=== PATIENT | female | born 1985 | race Caucasian/White ===

== ENCOUNTER 2024-03-01 19:49 | Emergency (ER) | payer BC, SELFPAY ==
[2024-03-01 19:51] VITALS: BP 158/101
--- NOTE | 2024-03-01 19:59 | ED.GENMED ---
History of Present Illness
General
Chief Complaint: Allergic Reaction
Source: patient
Exam Limitations: none
Time Seen by Provider: 03/01/24 19:58
Nursing documentation reviewed up to this point in time: agreed with
Travel History
Have you had any contact with someone who has COVID-19?: No
Do you have any symptoms of coronavirus? Fever > 100 degrees, chills, cough, shortness of breath, sore throat, loss of taste or smell, muscle aches, or headache?: No
History of Present Illness
History of Present Illness:
38 allergic reaction to Serbian food since last night taking Benadryl
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
Past History
Past History
ED Past Medical History: Other (cervical spine degenerative disease)
ED Past Surgical History:
Social History
Tobacco: Non-smoker
Alcohol: None
Drug: None
Personal:
Living: with family
Employment: Employed
Family History
Family History: Other
Review of Systems
Review of Systems
All Other Systems: Not applicable
EENT: Reports sore throat and mouth swelling
Respiratory: Reports trouble breathing
ABD/GI: Reports no symptoms
Skin: Reports itching and rash
Phy Exam
Physical Exam
Physical Exam:
Physical Exam
General: 38 mild distress
Neck: Lips are slightly swollen
Heart: Tachycardic
Lungs: Wheezing
Abdomen: Nontender
Neuro: alert and oriented. no focal neurological deficits
Skin: Urticarial rash on the back and trunk
Psychiatric: well kept. interactive and cooperative
Extremities: no edema
Course
Orders/Labs/Results
Orders:
Orders
03/01/24 20:07
Cardiac Monitoring- Treatment ONCE
EPINEPHrine PF [Adrenalin] 0.3 mg IM NOW STA
Ipratropium/Albuterol Sulfate [Duoneb] 3 ml INH R NOW STA
Prednisone [Deltasone] 50 mg PO NOW STA
03/01/24 22:03
Electrocardiogram (*1) Urgent
Reason for Study: Tachycardia
EKG- Treatment ONCE
Vital Signs
Initial and Last Documented VS:
Initial Vital Signs
Temp Pulse Resp BP Pulse Ox
98.4 F 102 24 158/101 100
03/01/24 19:51 03/01/24 19:51 03/01/24 19:51 03/01/24 19:51 03/01/24 19:51
Last Documented Vital Signs
Temp Pulse Resp BP Pulse Ox
98.4 F 109 14 144/89 94
03/01/24 19:51 03/01/24 22:38 03/01/24 22:38 03/01/24 22:10 03/01/24 22:38
MDM/Problems Addressed
Differential Diagnosis Includes:
Allergic reaction reactive airway
MDM/Problems Addressed:
Lip swelling rash wheezing
Chronic conditions affecting care:
Asthma allergy
Acute Exacerbation and/or Progression of Chronic Illness:
Asthma allergies
*Pulse Oximetry
Patient hypoxic: no
*Conductor/Brakeman Interpretation
Interpretation: abnormal
Heart Rate: 110
Rhythm: sinus
*Critical Care Note
Total Time (30-74mins, 75-104mins- exclusive of procedures): Not Applicable
Update Note
Update Note:
update patient feeling better no longer wheezing feels a bit jittery from albuterol and epi states her itching is better, she states her manager revenue retired but she does have the ability to follow-up in his practice
1010 patient with some palpitations EKG shows sinus tach
1040 patient feeling better heart rate lower
ED Attending Note
-
Portions of this chart may have been created with voice recognition software.� Occasional wrong word or��sound alike� substitutions may have occurred due to the inherent limitations of voice recognition software.
Discharge Plan
Departure
Patient Disposition: Home (Routine Discharge)
Date of Disposition: 03/01/24
Time of Disposition: 22:39
Patient with high blood pressure during this ER visit?: No
Condition: Good
Discharge Problem:
Allergic reaction
Instructions: Hives (DC)
Prescriptions:
New
albuterol sulfate 90 mcg/actuation HFA aerosol inhaler
2 puff inhalation Q6H PRN (Reason: shortness of breath or wheezing) Qty: 8.5 2RF
epinephrine [EpiPen] 0.3 mg/0.3 mL auto-injector
0.3 mg IM .STAT PRN (Reason: anaphylaxis) Qty: 1 3RF
methylprednisolone [Medrol (Sam)] 4 mg tablets,dose pack
See Rx Instructions .ROUTE .COMPLEX Qty: 21 0RF
Rx Instructions:
for 6 days
No Action
fluticasone propion-salmeterol [Advair Diskus] 1 DISK blister with device
1 puff inhalation BID
gabapentin 300 MG capsule
300 mg PO HS
albuterol sulfate [Ventolin HFA] 90 MCG/PUFF HFA aerosol inhaler
1 puff inhalation PRN PRN (Reason: as directed)
fluoxetine 20 MG capsule
40 mg PO DAILY
Control
1 tab PO DAILY
Imitrex
1 tab PO PRN PRN (Reason: migraines)
meclizine 25 MG tablet
25 mg PO Q8HPRN PRN (Reason: dizziness) Qty: 30 0RF
prednisone 50 mg tablet
50 mg PO DAILY Qty: 5 0RF
Activity Restrictions/Additional Instructions:
Follow-up with your manager revenue, return to the ER if worsening symptoms or any other concerns
Interventions
Interventions:
*Risk Screen - Suicide Last Done: 03/01/24 19:51
*Neglect/Abuse Screening Last Done: 03/01/24 19:51
ED- Cardiac Assessment Last Done: 03/01/24 21:21
ED- Pulmonary Assessment Last Done: 03/01/24 21:21
Discharge Date and Time
Print Language: ITALIAN
[2024-03-01] MEDS: ADRENALIN 0.299999999999999989 MG IM (20:20)
[2024-03-01] MEDS: DELTASONE 50 MG PO (20:20)
[2024-03-01] MEDS: DUONEB 3 ML INH (20:20)
[2024-03-01 20:27] VITALS: BP 160/119; BMI 43.5
[2024-03-01 21:00] VITALS: BP 136/97
[2024-03-01 21:21] VITALS: BP 136/97
[2024-03-01 22:10] VITALS: BP 144/89
[2024-03-01 22:41] VITALS: BP 143/70
== END 2024-03-01 22:57 | disposition home or self-care (01) ==
LOC: EMR 19:49
PROVIDERS: EMERGENCY PHYSICIAN Emergency Medicine; FAMILY PHYSICIAN Family Medicine
DX: T78.40XA Allergy, unspecified, initial encounter (principal); X58.XXXA Exposure to other specified factors, initial encounter
CPT/HCPCS: 99283; 94640; 96372; 93005

== ENCOUNTER 2024-09-30 11:34 | Emergency (ER) | payer BC, SELFPAY ==
[2024-09-30] VITALS (10 sets, daily range): BP systolic 117–186; BP diastolic 66–120; BMI 42.3
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
[2024-09-30 14:42] LABS: Urine Albumin Trace (Neg - Trace); Urine Bilirubin Negative (Negative); Urine Character Clear (Clear); Urine Color Yellow; Urine Glucose Negative (Negative); Urine Ketone Negative (Negative); Urine Leukocyte Negative (Negative); Urine Nitrite Negative (Negative); Urine Occult Blood Negative (Negative); Urine Specific Gravity 1.015 (<1.030); Urine Urobilinogen Negative (Neg - 1+)
[2024-09-30 14:47] LABS: HCG, Urine Qualitative Screen Negative
[2024-09-30] MEDS: NSS 1000 IV (16:42)
[2024-09-30 16:44] LABS: Blood Urea Nitrogen 12 mg/dl (7-17); Calcium 9.1 mg/dl (8.4-10.2); Carbon Dioxide 20 mmol/L (22-30); Chloride 105 mmol/L (98-107); Estimated Creatinine Clearance > 125 ml/min; Glucose 93 mg/dl (70-99); Sodium 140 mmol/L (135-145); eGFR > 60.00
[2024-09-30 16:54] LABS: % Basophils 0.4 % (0-2); % Eosinophils 0.8 % (0-6); % Immature Granulocytes 0.3 % (0-0.5); % Lymphocytes 27.8 % (20.5-51.1); % Monocytes 8.6 % (1.7-9.3); % Neutrophils 62.1 % (42.2-75.2); Absolute Basophils 0.1 10^3/uL (0-0.2); Absolute Eosinophils 0.1 10^3/uL (0-0.7); Absolute Lymphocytes 4.3 10^3/uL (1.2-3.4); Absolute Monocytes 1.3 10^3/uL (0.1-0.6); Absolute Neutrophils 9.5 10^3/uL (1.4-6.5); Hematocrit 38.4 % (37.0-47.0); Hemoglobin 13.2 g/dL (12.0-16.0); Mean Corp Hgb Conc. 34.4 g/dL (33.0-37.0); Mean Corpuscular Hgb 31.7 pg (27.0-31.0); Mean Corpuscular Volume 92.3 fL (81.0-99.0); Mean Platelet Volume 9.4 fL (7.4-10.4); Nucleated Red Blood Cells % 0 %; Platelet Count 294 10^3/uL (130-400); Red Blood Cell Count 4.16 10^6/uL (4.20-5.40); Red Cell Dist. Width 12.6 % (11.5-14.5); White Blood Cell Count 15.3 10^3/uL (4.8-10.8)
[2024-09-30] MEDS: ZOFRAN 4 MG IV (18:40)
[2024-09-30] MEDS: MORPHINE SULFATE 4 MG IV (18:40)
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
== END 2024-09-30 21:22 | disposition home or self-care (01) ==
LOC: EMR 11:34
PROVIDERS: Nurse Practitioner; EMERGENCY PHYSICIAN Emergency Medicine; FAMILY PHYSICIAN Family Medicine
DX: S30.0XXA Contusion of lower back and pelvis, initial encounter (principal); S60.511A Abrasion of right hand, initial encounter; S09.90XA Unspecified injury of head, initial encounter; W10.9XXA Fall (on) (from) unspecified stairs and steps, initial encounter
CPT/HCPCS: 96374; 96375; 96361; 99284; 70450; 71046; 71260; 72110; 72125; 74177; 80048; 81003; 81025; 84132; 85025; Q9967

== ENCOUNTER → 2024-10-10 08:13 | Outpatient (REF) | payer BC, SELFPAY ==
[2024-10-10 10:25] LABS: Free T4 0.92 ng/dl (0.78-2.19)
[2024-10-10 10:39] LABS: TSH 2.04 uIU/ml (0.47-4.68)
== END ==
LOC: HWLAB 08:13
PROVIDERS: ATTENDING PHYSICIAN Family Medicine
DX: Z13.29 Encounter for screening for other suspected endocrine disorder (principal)
CPT/HCPCS: 36415; 84439; 84443

== ENCOUNTER → 2024-11-01 14:46 | Outpatient (REF) | payer BC, SELFPAY | LOC: HWRAD 14:46 | PROVIDERS: ATTENDING PHYSICIAN Family Medicine | DX: E04.1 Nontoxic single thyroid nodule (principal) | CPT/HCPCS: 76536 ==

== ENCOUNTER → 2025-03-24 09:06 | Outpatient (REF) | payer BC, SELFPAY ==
[2025-03-24 11:38] LABS: % Basophils 0.5 % (0-2); % Eosinophils 2.7 % (0-6); % Immature Granulocytes 0.2 % (0-0.5); % Lymphocytes 30.2 % (20.5-51.1); % Monocytes 7.4 % (1.7-9.3); Absolute Eosinophils 0.2 10^3/uL (0-0.7); Absolute Lymphocytes 2.4 10^3/uL (1.2-3.4); Absolute Monocytes 0.6 10^3/uL (0.1-0.6); Absolute Neutrophils 4.8 10^3/uL (1.4-6.5); Hematocrit 41.3 % (37.0-47.0); Hemoglobin 14.1 g/dL (12.0-16.0); Mean Corp Hgb Conc. 34.1 g/dL (33.0-37.0); Mean Corpuscular Hgb 31.6 pg (27.0-31.0); Mean Corpuscular Volume 92.6 fL (81.0-99.0); Mean Platelet Volume 9.9 fL (7.4-10.4); Nucleated Red Blood Cells % 0 %; Platelet Count 294 10^3/uL (130-400); Red Blood Cell Count 4.46 10^6/uL (4.20-5.40); Red Cell Dist. Width 12.5 % (11.5-14.5); White Blood Cell Count 8.1 10^3/uL (4.8-10.8)
[2025-03-24 11:55] LABS: ALT (SGPT) < 10 U/L (0-35); AST (SGOT) 16 U/L (14-36); Albumin 4.4 g/dl (3.5-5.0); Alkaline Phosphatase 79 U/L (38-126); Blood Urea Nitrogen 8 mg/dl (7-17); Carbon Dioxide 24 mmol/L (22-30); Chloride 108 mmol/L (98-107); Glucose 108 mg/dl (70-99); HDL Cholesterol 44 mg/dl; LDL Cholesterol, Calculated 153 mg/dl; Potassium 4.1 mmol/L (3.5-5.1); Sodium 139 mmol/L (135-145); Total Bilirubin 1.1 mg/dl (0.2-1.3); Total Cholesterol 236 mg/dl (50-199); Total Protein 7.5 g/dl (6.3-8.2); Triglyceride 199 mg/dl (10-149); Very Low Density Lipoprotein 39 mg/dl (0-30); eGFR > 60.00
[2025-03-24 12:13] LABS: TSH 1.51 uIU/ml (0.47-4.68)
== END ==
LOC: HWLAB 09:06
PROVIDERS: ATTENDING PHYSICIAN Family Medicine
DX: E78.1 Pure hyperglyceridemia (principal); Z00.00 Encounter for general adult medical examination without abnormal findings
CPT/HCPCS: 36415; 80053; 80061; 84443; 85025